=== PATIENT | male | born 1970 | race Hispanic/Latino ===

== ENCOUNTER → 2018-01-18 | Day surgery (SDC) | payer BC ==
--- NOTE | 2018-01-17 15:28 | Diagnostic Imaging Report ---
EXAM: XR CHEST 2 VIEWS DATE: 01/17/2018 3:11 PM INDICATION: Preoperative, right shoulder mass COMPARISON: None FINDINGS: Lines and Tubes: None Heart and Mediastinum: No acute cardiomediastinal findings. Lungs and Pleura: No significant pleural effusion, pneumothorax, or focal consolidation. Bones and Soft Tissues: No acute findings. IMPRESSION: 1. No acute cardiopulmonary findings. Signed by: Dr. Justin Doe MD on 01/17/2018 3:25 PM
[2018-01-17 15:50] LABS: BASOPHILS # (AUTO) 0.1 (0.0-0.1); BASOPHILS % 0.8 % (0.0-1.0); EOSINOPHILS # (AUTO) 0.5 (0.0-0.4); HEMATOCRIT 46.8 % (38.2-49.6); HEMOGLOBIN 15.8 g/dL (14.0-18.0); LYMPHOCYTES # (AUTO) 2.9 (1.0-3.2); LYMPHOCYTES % 29.5 % (18.0-39.1); MEAN CORPUSCULAR HEMOGLOBIN 28.7 pg (28-32); MEAN CORPUSCULAR HGB CONC 33.8 g/dL (31-35); MEAN CORPUSCULAR VOLUME 85.1 fL (81-99); MONOCYTES # (AUTO) 0.8 (0.2-0.8); MONOCYTES % 7.9 % (4.4-11.3); NEUTROPHILS # (AUTO) 5.5 (2.1-6.9); NEUTROPHILS % 56.4 % (38.7-80.0); PLATELET COUNT 307 x10e3/uL (140-360); RED CELL DISTRIBUTION WIDTH 13.6 % (11.7-14.4)
[2018-01-17 16:32] LABS: ANION GAP 13.8 mmol/L (8-16); BLOOD UREA NITROGEN 14 mg/dL (7-26); BUN/CREATININE RATIO 15 (6-25); CALCIUM 9.5 mg/dL (8.4-10.2); CARBON DIOXIDE 24 mmol/L (22-29); CHLORIDE 101 mmol/L (98-107); CREATININE, SERUM 0.94 mg/dL (0.72-1.25); EST GLOMERULAR FILTRATION RATE > 60 ML/MIN (60-); GLUCOSE 100 mg/dL (74-118); POTASSIUM 3.8 mmol/L (3.5-5.1); SODIUM 135 mmol/L (136-145)
[~2018-01-18] MED LIST: BUPIVACAINE 0.25%/EPI 30ML SDV INJ ONE; CHOLESTEROL MED.; DEXAMETHASONE SOD PHOS INJ 4 MG/ML VIAL ONE; FENTANYL CITRATE/PF 100MCG/2 ML INJ ONE; KETOROLAC TROMETHAMINE 30 MG/ML VIAL ONE; LIDOCAINE HCL 2% LOCAL INJ 5 ML SDV VIAL INJ ONE; MIDAZOLAM HCL 2 MG/2 ML VIAL ONE; ONDANSETRON HCL INJ 2 MG/ML VIAL ONE; PROPOFOL IV EMULSION 10 MG/ML 20 ML VIAL ONE; SEVOFLURANE INHAL SOLN 250 ML PEN BTL ONE
--- OUTSIDE RECORDS SUMMARY | 2018-01-18 09:00 | XMS REPORT ---
Author Author [facility] Address Unknown Phone Unavailable Care Team Providers Care Heating Engineer Name Role Phone KRISTEN REILLY Unavailable Unavailable Problems This patient has no known problems. Allergies, Adverse Reactions, Alerts This patient has no known allergies or adverse reactions. Medications This patient has no known medications. Results Test Description Test Time Test Comments Text Results Atomic Results Result Comments CHEST 2 VIEWS 2018-01-17 15:25:00 [place] [address] Patient Name: MELLY KOEHLER MR #: [id number] : 1970 Age/Sex: 47/M Req #: [id number] Adm Physician: Ordered by: KRSITEN REILLY MD Report #: [id number] Location: OR Room/Bed: Procedure: [id number] DX/CHEST 2 VIEWS Exam Date: Exam Time: REPORT STATUS: Signed EXAM: XR CHEST 2 VIEWS DATE: 01/17/2018 3:11 PM INDICATION: P reoperative, right shoulder mass COMPARISON: None FINDINGS: Lines and Tubes: None Heart and Mediastinum: No acute cardiomediastinal findings. Lungs and Pleura: No significant pleural effusion, pneumothorax, or focal consolidation. Bones and Soft Tissues: No acute findings. IMPRESSION: 1. No acute cardiopulmonary findings. Signed by: Dr. Justin Mane MD on 01/17/2018 3:25 PM Dictated By: JUSTIN MANE MD [id number] Transcribed By: FAITH on 01/17/18 152 COPY TO: KRISTEN REILLY MD
[2018-01-18 13:20] VITALS: BP 118/74
--- NOTE | 2018-01-18 16:54 | Operative Report ---
DATE OF PROCEDURE: January 18, 2018 PREOPERATIVE DIAGNOSIS: Lipoma of the right shoulder. POSTOPERATIVE DIAGNOSIS: Lipoma of the right shoulder. PROCEDURE PERFORMED: Excision of lipoma of the right shoulder. ESTIMATED BLOOD LOSS: Minimal. DRAINS: None. COMPLICATIONS: None. INDICATIONS AND FINDINGS: The patient is a 47-year-old male who have noticed a mass of the right shoulder recently after procedure and a flu shot. INTRAOPERATIVE FINDINGS: The patient had a lipoma of the right shoulder that measured about 7 x 5 cm, well encapsulated. DESCRIPTION OF PROCEDURE: With the patient lying on the operating table in the supine position after administration of general anesthesia, he was prepped and draped for excision of lipoma of the right shoulder. An incision was made along the longitudinal axis of the right arm extended into the shoulder and dissection was carried down through the skin and subcutaneous tissue until the lipoma came into view. It was dissected from the tissues sharply using electrocautery and then detached. The wound irrigated, bleeding points cauterized and the wound was closed in 2 layers using 2-0 Vicryl for the soft tissues and subcuticular plane and the skin was closed using 2-0 silk. Sterile dressing was applied. The patient tolerated the procedure well and was taken to recovery room in stable condition. Job#: [id number] MARQUES
== END | disposition home or self-care (01) ==
LOC: OR 08:58
PROVIDERS: ATTEND Surgery
DX: D17.21 Benign lipomatous neoplasm of skin and subcutaneous tissue of right arm (principal); E78.5 Hyperlipidemia, unspecified; R05 Cough; F17.210 Nicotine dependence, cigarettes, uncomplicated; Z01.810 Encounter for preprocedural cardiovascular examination; Z01.812 Encounter for preprocedural laboratory examination; Z01.818 Encounter for other preprocedural examination
CPT/HCPCS: 11406; 12032; 36415; 71046; 80048; 85025; 88304; 93005; J1100; J1885; J2001; J2250; J2405